=== PATIENT | female | born 1965 | race Caucasian/White ===

== ENCOUNTER → 2018-03-04 09:06 | Outpatient (CLI) | payer BC, SELFPAY ==
[2016-01-31 00:31] VITALS: BMI 20.3
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
== END ==
PROVIDERS: Family Provider Family Medicine; PCP Family Medicine; Referring Provider Family Medicine; Visit Provider Family Medicine
DX: S13.4XXA Sprain of ligaments of cervical spine, initial encounter (principal); X58.XXXA Exposure to other specified factors, initial encounter; Y93.9 Activity, unspecified; Y92.9 Unspecified place or not applicable; Y99.9 Unspecified external cause status
CPT/HCPCS: 72040

== ENCOUNTER → 2019-02-23 10:06 | Outpatient (CLI) | payer OTHER, SELFPAY ==
[2016-01-31 00:31] VITALS: BMI 20.3
--- NOTE | 2019-02-23 10:18 | RAD_ITS ---
STUDY: X-RAY - PELVIS AND BILATERAL HIPS REASON FOR EXAM: Female, 54 years old. No history of known injury. Bilateral hip pain. TECHNIQUE: AP view of the pelvis.? 2 views of the right hip, and 2 views of the left hip were obtained. COMPARISON: None. FINDINGS: There is a non-specific bowel gas pattern. Normal visualized soft tissue structures. Normal bilateral iliac wings, sacroiliac joints and visualized sacrum. Normal bilateral superior and inferior pubic rami. Normal pubic symphysis. Normal bilateral ischial tuberosities. Normal visualized right femoral head. There is mild osteoarthritic spur formation of the right acetabular rim. There is mild articular joint space narrowing of the right hip. Normal visualized left femoral head. There is minimal osteoarthritic spur formation of the left acetabular rim. There is mild articular joint space narrowing of the left hip. RAD/Hips B/L min 2 views w/ Pelvis IMPRESSION: Minor degenerative disease of bilateral hips, no acute fracture or subluxation seen. Electronically Signed: Cammy Dominguez MD at 1:10 EST , Service support ,
[2019-02-23 12:37] LABS: Vitamin D,25 Hydroxy 38.9 ng/mL (29.95-100.01)
[2019-02-23 12:41] LABS: Anion Gap 8 (5-15); BUN 19 mg/dL (7-18); BUN/Creat Ratio 24.9 RATIO (10-20); Calcium,Total 8.8 mg/dL (8.5-10.1); Chloride 106 mmol/L (98-107); Cholesterol 202 mg/dL (200); Creatinine, Serum 0.76 mg/dL (0.55-1.02); EST Glomerular Filtration Rate 84 mL/min (>60); Est Glom Filt Rate - Afr Amer 102 mL/min (>60); Glucose 84 mg/dL (74-106); High Density Lipoprotein 62 mg/dL; Potassium 3.7 mmol/L (3.5-5.1); Sodium Level 142 mmol/L (136-145); Thyroid Stim Hormone (TSH) 1.21 uIU/mL (0.358-3.74); Triglycerides 55 mg/dL; Very Low Density Lipoprotein 11 mg/dL (5-40)
== END ==
PROVIDERS: Family Provider Family Medicine; PCP Family Medicine; Referring Provider Family Medicine; Visit Provider Family Medicine
DX: Z00.00 Encounter for general adult medical examination without abnormal findings (principal); M25.559 Pain in unspecified hip
CPT/HCPCS: 36415; 73521; 80048; 80061; 82306; 84443

== ENCOUNTER 2020-03-23 12:27 | Emergency (ER) | payer OTHER, SELFPAY ==
[2020-03-23 12:29] VITALS: BP 139/79; PULSE 98; RESP 17; TEMP 36.7; O2SAT 100; BMI 23.6
--- NOTE | 2020-03-23 13:10 | ED.VIS.GEN ---
History of Present Illness Chief Complaint: Eye Problem Informant: Patient Narrative: 55-year-old female presents with a 1 hour history of floaters in the right eye. She denies any pain. She does have a history of migraines. She is never experienced these before. She describes them as 1 million black dots with spider webs that are moving around. If she closes her eye and covers that she does not have the symptoms. She takes her hand away with the eye closed she sees him. She does not wear glasses or corrective lenses. Past Medical History - Allergies and Home Meds Allergies/Adverse Reactions: Allergies codeine Allergy (Verified 03/23/20 12:28) Nausea Primary Care Physician: Noman Goldsmith MD [STAFF PHYSICIAN] - As soon as possible Past Medical History: None Surgical History: noncontributory Smoking Status: Never smoker Drugs: None Review of Systems General: Denies: Chills, Fever, Sweats Eyes: Reports: Visual changes - right. Denies: Visual changes - bilaterally, Diplopia ENT: Denies: Rhinorrhea, Sore throat Cardiovascular: Denies: Chest pain, Palpitations Respiratory: Denies: Dyspnea, Cough, Dyspnea on exertion Gastrointestinal: Denies: Abdominal pain, Nausea, Vomiting, Diarrhea, Melena, Hematochezia Genitourinary: Denies: Dysuria, Hematuria, Frequency Musculoskeletal: Denies: Back pain, Extremity Pain Skin: Denies: Rash, Wounds Neurological: Denies: Headache, Weakness, Numbness Physical Exam Vital Signs/Narrative: Vital Signs Temp Pulse Resp BP Pulse Ox 03/23/20 12:29 98.0 F 98 17 139/79 H 100 Inital Vital Signs reviewed: Yes General: Well nourished, Well developed, No Acute Distress Head: Normocephalic, Atraumatic Eyes: Perrl, EOMI ENT: Moist mucous membranes, No rhinorrhea Neck: Supple, Nontender Cardiovascular: Regular rate, Regular rhythm, No murmurs Respiratory: No distress, CTA bilaterally, Chest nontender Abdomen: Soft, Nontender, Nondistended, Normal bowel sounds Back: Nontender, Normal Inspection Extremities: Nontender, No edema Skin: Normal color, No rash Neurological: Alert, Oriented x3, Cranial nerves II-XII grossly intact, Normal Strength, Normal Sensation Psychological: Normal affect, Normal Mood Diagnostic/Tx/Re-eval - Medical Decision Making Right eye vision 20/40 left eye 20/25 both 20/25 Cyclogyl was instilled in the right eye. Funduscopic exam I do not see any evidence of retinal detachment. I am able to visualize some floaters. Her visual carroll are intact. I spoke with ophthalmology (Dr. Goldsmith). He will be able to see her in the office at 0800 hrs. tomorrow. Patient is comfortable with that plan. ED Disposition - Plan for ED Patient: Disposition: Home or Assisted Living Diagnosis: Vitreous floaters of right eye Instructions: What Are Flashes and Floaters?, Treating Flashes and Floaters Referrals: Noman Goldsmith MD [STAFF PHYSICIAN] - As soon as possible
[2020-03-23] MEDS: Cyclopentolate 1% 2 ML Bottle 1 DRP RIGHT EYE (13:15)
== END 2020-03-23 13:59 | disposition home or self-care (01) ==
PROVIDERS: Emergency Provider Emergency Medicine; PCP Family Medicine
DX: H43.391 Other vitreous opacities, right eye (principal)
CPT/HCPCS: 99283

== ENCOUNTER 2020-06-19 12:00 | Outpatient (RCR) | payer BC, SELFPAY ==
[2020-06-19] MEDS: COVID-19 VACC, MRNA(PFIZER)/PF 30 MCG/0.3 ML SYRINGE IM (10:15)
[2020-07-10] MEDS: COVID-19 VACC, MRNA(PFIZER)/PF 30 MCG/0.3 ML SYRINGE IM (10:05)
== END 2020-06-19 23:59 ==
LOC: IMMUN 12:00
PROVIDERS: PCP Family Medicine; Visit Provider Family Medicine
DX: Z23 Encounter for immunization (principal)
CPT/HCPCS: 0001A; 0002A; 91300

== ENCOUNTER → 2022-12-14 | Outpatient (CLI) | payer BC, SELFPAY ==
--- NOTE | 2022-12-14 10:35 | RAD_ITS ---
INDICATION: Right second toe injury EXAMINATION/TECHNIQUE: X-RAY - RIGHT XR Foot Min 3 Views 3 VIEWS COMPARISON: No prior examinations are available for comparison FINDINGS: SOFT TISSUES: No soft tissue swelling or gas. No radiopaque foreign body. BONES/JOINTS: Nondisplaced intra-articular fracture of the base of the proximal phalanx of the second toe. Normal alignment. Moderate to severe degenerative arthrosis of the first metatarsophalangeal joint.. No sclerotic or destructive changes observed. RAD/Foot min 3 Views IMPRESSION: Fracture of the proximal phalanx of the second toe. Electronically Signed: Rg Beckham MD at 13:37 EDT ,
== END | disposition home or self-care (01) ==
LOC: MTRAD 10:33
PROVIDERS: PCP Family Medicine; Referring Provider Family Medicine; Visit Provider Family Medicine
DX: S99.921A Unspecified injury of right foot, initial encounter (principal); X58.XXXA Exposure to other specified factors, initial encounter
CPT/HCPCS: 73630

== ENCOUNTER 2023-02-02 20:29 | Observation (INO) | payer BC, SELFPAY ==
[2023-02-02 20:30] VITALS: BP 145/79; PULSE 75; RESP 15; TEMP 36.6; O2SAT 97; BMI 23.2
[2023-02-02 21:51] VITALS: BP 131/85; PULSE 71; RESP 16; O2SAT 99
[2023-02-02 21:57] VITALS: BMI 23.9
--- NOTE | 2023-02-02 22:04 | CT_ITS ---
EXAM: CT HEAD WITHOUT INTRAVENOUS CONTRAST CLINICAL INDICATION: TIA TECHNIQUE: Multiple axial images were obtained of the head without intravenous contrast. This CT exam was performed using one or more of the following dose reduction techniques: automated exposure control, adjustment of the mA and/or kV according to patient size, and/or use of iterative reconstruction technique. COMPARISON: No relevant prior studies available. FINDINGS: BRAIN AND EXTRA-AXIAL SPACES: No significant abnormality. No intra- or extra-axial hemorrhage. No evidence of acute infarct. No intracranial mass or mass effect. There is preservation of the ortiz/white matter interface. Ventricles are appropriate for age. Basal cisterns are patent. BONES/JOINTS: No significant abnormality. No discrete lytic or blastic abnormalities. SINUSES: No significant findings. MASTOID AIR CELLS: No significant effusion. ORBITS: No acute findings. CT/Brain/Head without Contrast IMPRESSION: No CT evidence of acute intracranial pathology. ASPECTS: 10. Electronically Signed: Alejandro Glass DO at 23:10 EDT ,
--- NOTE | 2023-02-02 22:04 | CT_ITS ---
EXAM: CT ANGIOGRAPHY HEAD AND NECK WITH INTRAVENOUS CONTRAST CLINICAL INDICATION: TIA TECHNIQUE: [place] [facility] [place]/head and neck CT angiography protocol performed with intravenous contrast. This CT exam was performed using one or more of the following dose reduction techniques: automated exposure control, adjustment of the mA and/or kV according to patient size, and/or use of iterative reconstruction technique. MIP reconstructed images were created and reviewed. CONTRAST: IV 100mL [id number] COMPARISON: CT neck, 06/27/2014. CT head, 02/02/2023. FINDINGS: HEAD: RIGHT ANTERIOR CEREBRAL ARTERY: No significant abnormality. No significant stenosis at the visualized segments. Anterior communicating artery is present. No aneurysm. RIGHT MIDDLE CEREBRAL ARTERY: No significant abnormality. No significant stenosis at the visualized segments. No aneurysm. RIGHT POSTERIOR CEREBRAL ARTERY: There is a right posterior communicating artery. No occlusion or significant stenosis. No aneurysm. RIGHT INTRACRANIAL INTERNAL CAROTID ARTERY: No significant abnormality. No significant stenosis. No dissection or occlusion. RIGHT INTRACRANIAL VERTEBRAL ARTERY: No significant abnormality. No significant stenosis. No dissection or occlusion. LEFT ANTERIOR CEREBRAL ARTERY: No significant abnormality. No significant stenosis at the visualized segments. No aneurysm. LEFT MIDDLE CEREBRAL ARTERY: No significant abnormality. No significant stenosis at the visualized segments. No aneurysm. LEFT POSTERIOR CEREBRAL ARTERY: There is a left posterior communicating artery. No occlusion or significant stenosis. No aneurysm. LEFT INTRACRANIAL INTERNAL CAROTID ARTERY: No significant abnormality. No significant stenosis. No dissection or occlusion. LEFT INTRACRANIAL VERTEBRAL ARTERY: No significant abnormality. No significant stenosis. No dissection or occlusion. BASILAR ARTERY: No significant abnormality. No significant stenosis. No aneurysm. OTHER VASCULATURE: No vascular malformation. NECK: RIGHT COMMON CAROTID ARTERY: No significant abnormality. No significant stenosis. No dissection or occlusion. RIGHT EXTRACRANIAL INTERNAL CAROTID ARTERY: No significant abnormality. No significant stenosis. No dissection or occlusion. RIGHT EXTERNAL CAROTID ARTERY: No significant abnormality. No occlusion. RIGHT EXTRACRANIAL VERTEBRAL ARTERY: No significant abnormality. No significant stenosis. No dissection or occlusion. LEFT COMMON CAROTID ARTERY: No significant abnormality. No significant stenosis. No dissection or occlusion. LEFT EXTRACRANIAL INTERNAL CAROTID ARTERY: No significant abnormality. No significant stenosis. No dissection or occlusion. LEFT EXTERNAL CAROTID ARTERY: No significant abnormality. No occlusion. LEFT EXTRACRANIAL VERTEBRAL ARTERY: No significant abnormality. No significant stenosis. No dissection or occlusion. THYROID: Subcentimeter left thyroid nodule for which no follow-up is indicated. BRACHIOCEPHALIC AND SUBCLAVIAN ARTERIES: Normal as visualized. No occlusion or significant stenosis. LUNG APICES: Normal as visualized. HEAD and NECK: BONES/JOINTS: Degenerative changes in the cervical spine. No discrete lytic or blastic abnormalities. No acute osseous abnormalities. SOFT TISSUES: No significant abnormality. CAROTID STENOSIS REFERENCE USING NASCET CRITERIA: % ICA stenosis = (1 - narrowest ICA diameter/diameter of distal cervical ICA) x 100. Mild - <50% stenosis. Moderate - 50-69% stenosis. Severe - 70-94% stenosis. Near occlusion - 95-99% stenosis. Occluded - 100% stenosis. CT/CTA Head AND Neck W/ Contrast IMPRESSION: 1. No acute arterial pathology in the neck. 2. No large vessel occlusion or critical intracranial arterial stenosis. Electronically Signed: Alejandro Glass DO at 23:27 EDT ,
--- NOTE | 2023-02-02 22:05 | EX.ED.DYSGE1 ---
HPI History of Present Illness Chief Complaint: Neuro S/Sx Informant: patient Onset/Context/Timing Onset: Today Narrative Narrative: Patient states that at 7:30 PM this evening she was eating dinner when she got lightheaded. She had paresthesias in her left upper extremity. When she got up to walk she felt like her left side was weak and she had a stumbling gait. She drove home and laid on the couch. Symptoms seem to improve after 15 minutes or so. She states on arrival to the emergency room she had some slight weakness remaining in her left side but at the time of my evaluation she states it is resolved and she feels back to her normal baseline. After looking at some information online she is concerned that she may have had a mini stroke. PFSH PFSH Medical History Migraines Smoker Home Medications propranolol 60 mg capsule,24 hr,extended release 60 mg PO QHS 02/02/23 [History Last Taken Unknown] sumatriptan succinate 50 mg tablet 50 mg PO PRN 02/02/23 [History Last Taken Unknown] Allergy/AdvReac Type Severity Reaction Status Date / Time codeine Allergy Nausea Verified 02/02/23 20:34 Social History Smoking Status: Never smoker ROS ROS ED Constitutional Constitutional ED: Denies chills or fever(s) Eyes Eyes: Denies change in vision or discharge from eye(s) ENT ENT ED: Denies discharge from eye(s), rhinorrhea or sore throat Cardiovascular Cardiovascular: Denies chest pain or palpitations Respiratory/Chest Respiratory/Chest: Denies cough or dyspnea Gastrointestinal Gastrointestinal: Denies abdominal pain, nausea or vomiting Genitourinary Genitourinary ED: Denies dysuria Musculoskeletal Musculoskeletal: Denies back pain or extremity pain Integumentary Denies Abrasions or rash Neurologic Neurologic: Reports paresthesias and weakness; Denies headache(s) Psychiatric Psychiatric: Denies anxiety or depression Allergic/Immunologic Allergic/Immunologic ED: Denies lip swelling or urticaria EXAM Physical Exam Const Vital Signs: 02/02/23 20:30 02/02/23 21:51 Temperature 97.8 F Temperature Source Temporal Pulse Rate 75 71 Respiratory Rate 15 16 Blood Pressure 145/79 H 131/85 H Blood Pressure Mean 101 100 Pulse Ox 97 99 Oxygen Delivery Method Room Air Room Air Positive well nourished and well developed General Appearance ED: well developed HEENT Reports normocephalic and head/scalp atraumatic Eyes PERRL and EOMs intact bilaterally Neck supple Chest Wall inspection of chest normal and palpation of chest normal Resp normal respiratory effort and clear to auscultation bilaterally Cardio regular rate and regular rhythm GI normal to inspection, nondistended, normoactive bowel sounds Palpation: soft Back/Spine no CVA tenderness Extremity normal to inspection Neuro oriented x3 and no sensory deficits noted Neuro Narrative: NIH equals 0 at time of my evaluation at 10 PM. Sensorium / Orientation: alert Motor Exam: strength 5/5 throughout Psych mental status grossly normal Skin no rashes or lesions noted MDM MDM MDM Narrative Medical decision making narrative: IV line established. Labwork obtained to evaluate for leukocytosis, anemia, and electrolyte derangement. EKG obtained to evaluate for cardiac arrhythmia/ischemia. Chest x-ray obtained to evaluate for acute lung pathology, cardiac size, or mediastinal abnormality. CT scan of the head obtained as well as CTA of the head and neck to evaluate for any evidence of stroke. Lab Data Attestation: I reviewed the patient's lab results. Labs: Laboratory Results - last 24 hr 02/02/23 02/02/23 22:01 22:27 WBC 8.0 RBC 4.53 Hgb 14.3 Hct 43.1 MCV 95.1 MCH 31.6 MCHC 33.2 RDW Std Deviation 42.5 RDW Coeff of Nila 12.1 Plt Count 298 MPV 9.3 Immature Gran % (Auto) 0.200 Neut % (Auto) 67.8 Lymph % (Auto) 22.8 [place] % (Auto) 7.6 Eos % (Auto) 1.2 Baso % (Auto) 0.4 Absolute Neuts (auto) 5.5 Absolute Lymphs (auto) 1.83 Nucleated RBC % 0 Sodium 143 Potassium 4.2 Chloride 110 H Carbon Dioxide 28.0 Anion Gap 5 BUN 18 Creatinine 0.82 Estim Creat Clear Calc 60.59 Est GFR (MDRD) Af Amer 93 Est GFR (MDRD) Non-Af 77 BUN/Creatinine Ratio 22.1 H Glucose 125 H Calcium 8.8 Troponin I High Sens < 3 L POC Glucose 126 H Radiography Chest X-Ray - ED: 1 View, Read by ED Physician, Normal, Heart, Lungs and Mediastinum Diagnostic Testing: Clinical Impression(s) from Imaging Studies Brain CT 02/02/23 22:04 IMPRESSION: No CT evidence of acute intracranial pathology. ASPECTS: 10. Electronically Signed: Alejandro Glass DO at 23:10 EDT , Head/Neck CTA 02/02/23 22:04 IMPRESSION: 1. No acute arterial pathology in the neck. 2. No large vessel occlusion or critical intracranial arterial stenosis. Electronically Signed: Alejandro Glass DO at 23:27 EDT , Chest X-Ray 02/02/23 22:32 IMPRESSION: Minimal linear scarring or discoid atelectasis at left base.. No acute infiltration or other significant abnormality Electronically Signed: Efrain Partida MD at 22:50 EDT , EKG Initial EKG: Attestation: I personally reviewed and interpreted this EKG as follows: Interpretation: Sinus Rhythm (Sinus at 67 with no acute ischemia.) Treatment and Re-Evaluation :: CBC was normal white count normal hemoglobin. Chemistry studies unremarkable. Glucose is 125. Troponin is less than 3. Portable chest x-ray per my interpretation reveals no focal infiltrate. Radiology interpretation reviewed and agrees. EKG is sinus rhythm with no ischemia. CT scan of the head as well as CTA of the head and neck revealed no acute abnormalities. Given the patient's symptoms consistent with a TIA I do feel she warrants observation for remainder of stroke/TIA work-up. I will speak with the hospitalist. Discharge Plan Triage Chief Complaint: Neuro S/Sx ED Provider: Hermila Redmond Dx/Rx/DC Orders Clinical Impression: Brain TIA Prescriptions: No Action sumatriptan succinate 50 mg tablet 50 mg PO PRN propranolol 60 mg capsule,extended release 24 hr 60 mg PO QHS Primary Care Provider: Will Valdez Referrals: Will Valdez MD [Primary Care Provider] - Disposition Disposition: Acute Care Hospital [facility]
[2023-02-02 22:20] LABS: Bedside Glucose 126 mg/dL (74-106)
--- NOTE | 2023-02-02 22:32 | RAD_ITS ---
STUDY: X-RAY CHEST REASON FOR EXAM: Female, 57 years old. TIA TECHNIQUE: AP portable COMPARISON: None. FINDINGS: There is minimal linear scarring or discoid atelectasis at left base.. There is no demonstrated pleural abnormality. Normal size heart. Normal mediastinum and moira. Normal visualized pulmonary arteries. Normal visualized aortic arch and descending thoracic aorta. Normal visualized thoracic spine. Normal visualized ribs, clavicles, and shoulders. There is no demonstrated abnormality of the visualized soft tissue structures of the upper abdomen. RAD/Chest 1 View (Portable) IMPRESSION: Minimal linear scarring or discoid atelectasis at left base.. No acute infiltration or other significant abnormality Electronically Signed: Efrain Partida MD at 22:50 EDT ,
[2023-02-02 22:41] LABS: Absolute Lymphocyte Count 1.83 X10^3/uL (0.83-4.51); Absolute Neutrophil Count 5.5 X10^3/uL (2.0-7.7); Basophil# 0.03 X10^3/uL; Basophil% 0.4 % (0-1); Eosinophils% 1.2 % (0-5); Hematocrit 43.1 % (37-47); Hemoglobin 14.3 g/dL (12.0-15.0); Lymphocyte # 1.83 X10^3/ul (0.83-4.51); Lymphocyte % 22.8 % (19-41); Mean Corp Hgb Conc 33.2 g/dL (32-36); Mean Corpuscular Hgb 31.6 pg (27.0-32.0); Mean Corpuscular Volume 95.1 fL (81-99); Mean Platelet Vol. 9.3 fl (6.2-12.0); Monocyte# 0.61 X10^3/uL; Monocyte% 7.6 % (0-10); NRBC Flagged by Analyzer 0 % (0-5); Neutrophil # 5.45 X10^3/uL (2.7-7.7); Neutrophil % 67.8 % (47-70); Platelet Count 298 K/mm3 (150-450); RBC Distribution Width CV 12.1 % (11.6-14.6); RBC Distribution Width SD 42.5 fl (35.1-43.9); Red Blood Count 4.53 M/mm3 (4.2-5.4)
[2023-02-02 23:12] LABS: Anion Gap 5 (5-15); BUN 18 mg/dL (7-18); BUN/Creat Ratio 22.1 RATIO (10-20); Calcium,Total 8.8 mg/dL (8.5-10.1); Chloride 110 mmol/L (98-107); Creatinine, Serum 0.82 mg/dL (0.55-1.02); EST Glomerular Filtration Rate 77 mL/min (>60); Est Glom Filt Rate - Afr Amer 93 mL/min (>60); Estimated Creatinine Clearance 60.59 ml/min; Glucose 125 mg/dL (74-106); Potassium 4.2 mmol/L (3.5-5.1); Sodium Level 143 mmol/L (136-145); Troponin-I HS < 3 pg/mL (3.0-54.0)
--- NOTE | 2023-02-03 02:03 | HP.PCM.HOS_ITS ---
HPI - General General Date of Admission: 02/03/23 Date of Service: 02/03/23 Chief Complaint: Strokelike symptoms HPI Narrative GUNNER KHOURY, is a 57 F with a significant history of tobacco abuse and chronic migraines who presents emergency department with strokelike symptoms. Her symptoms started few hours before presentation. Of note patient was eating at a restaurant and she felt lightheaded. Then her left arm was numbed. Also t he fingers of her left hand was tingling. When she got up to walk she realized that she was wobbly because her left leg was weak. She went home and googled and found out that her symptoms may be due to stroke. She denies any facial asymmetry. Subsequently her brought her to the emergency department. The bulk of her symptoms lasted for about 15 minutes. However she still had some residual weakness of her left leg while at the ED but that also eventually went away. She was not a candidate of tPA since her symptoms resolved. PFSH Medical History Migraines Smoker Home Medications propranolol 60 mg capsule,24 hr,extended release 60 mg PO QHS 02/02/23 [History Last Taken Unknown] sumatriptan succinate 50 mg tablet 50 mg PO PRN 02/02/23 [History Last Taken Unknown] Allergy/AdvReac Type Severity Reaction Status Date / Time codeine Allergy Nausea Verified 02/02/23 20:34 Family History Other Rheumatoid arthritis Surgical History History of tonsillectomy Social History Smoking Status: Current some day smoker tobacco type: cigarettes ROS ROS Narrative Pertinent positives and pertinent negatives as noted in HPI. All other systems were reviewed and are negative Vital Signs Vital Signs Vital Signs: 02/02/23 20:30 02/02/23 21:51 Temperature 97.8 F Temperature Source Temporal Pulse Rate 75 71 Respiratory Rate 15 16 Blood Pressure 145/79 H 131/85 H Blood Pressure Mean 101 100 Pulse Ox 97 99 Oxygen Delivery Method Room Air Room Air Weight Weight: 59.3 kg Body Mass Index (BMI) 23.9 Physical Exam Narrative Physical exam: General: Well-nourished, well-developed. Head: Normocephalic, atraumatic, no tenderness Eyes: Vision is grossly intact. EOMI ENT, no trauma, moist mucous membranes, no rhinorrhea Neck: Nontender, No thyromegaly. CVS: Regular rate and rhythm. S1-S2 present. No murmur, gallop or rub. Respiratory : clear to auscultation bilaterally, chest wall nontender Abdomen: Soft, nontender, nondistended, normal bowel sounds, no masses : Deferred Back: Nontender, no CVA tenderness, no midline spinal tenderness, deformities, step-offs Extremities: Nontender full range of motion, no trauma Skin: Normal color, no trauma, abrasions Neuro: Alert, oriented, cranial nerves II through XII grossly intact. No dysmetria with [id number] test or [id number] test. No sensation changes on bilateral extremities, upper and lower. Strength 5 out of 5 throughout. No hyperreflexia of elbow reflex or knee jerk reflex. Psychiatry: Normal mood. Normal affect. Not depressed. Not anxious. Results Lab / Micro Data 02/03/23 05:22 02/03/23 05:22 Labs: Laboratory Results - last 24 hr 02/02/23 22:01: POC Glucose 126 H 02/02/23 22:27: WBC 8.0, RBC 4.53, Hgb 14.3, Hct 43.1, MCV 95.1, MCH 31.6, MCHC 33.2, RDW Std Deviation 42.5, RDW Coeff of Nila 12.1, Plt Count 298, MPV 9.3, Immature Gran % (Auto) 0.200, Neut % (Auto) 67.8, Lymph % (Auto) 22.8, [place] % (Auto) 7.6, Eos % (Auto) 1.2, Baso % (Auto) 0.4, Absolute Neuts (auto) 5.5, Absolute Lymphs (auto) 1.83, Nucleated RBC % 0, Sodium 143, Potassium 4.2, Chloride 110 H, Carbon Dioxide 28.0, Anion Gap 5, BUN 18, Creatinine 0.82, Estim Creat Clear Calc 60.59, Est GFR (MDRD) Af Amer 93, Est GFR (MDRD) Non-Af 77, BUN/Creatinine Ratio 22.1 H, Glucose 125 H, Calcium 8.8, Troponin I High Sens < 3 L Radiology Impression Brain CT 02/02/23 22:04 IMPRESSION: No CT evidence of acute intracranial pathology. ASPECTS: 10. Electronically Signed: Alejandro Glass DO at 23:10 EDT , Head/Neck CTA 02/02/23 22:04 IMPRESSION: 1. No acute arterial pathology in the neck. 2. No large vessel occlusion or critical intracranial arterial stenosis. Electronically Signed: Alejandro Glass DO at 23:27 EDT , Chest X-Ray 02/02/23 22:32 IMPRESSION: Minimal linear scarring or discoid atelectasis at left base.. No acute infiltration or other significant abnormality Electronically Signed: Efrain Partida MD at 22:50 EDT , Assessment & Plan Assessment/Plan (1) Brain TIA: PLAN: Plan Brain TIA Serial NINDS NIH Scale ordered Impression of head/neck CTA by radiology: No acute pathology in the neck. No large vessel occlusion or critical intracranial arterial stenosis. Impression of brain CT by radiology: No CT evidence of acute intracranial pathology. CT neck was independently interpreted. I agree with radiology interpretation Lipid profile and A1c ordered. Physical therapy, occupational therapy and speech therapy to work with patient. N.p.o. until bedside swallow eval. Daily aspirin. High intensity statin Permissive hypertension. Control blood pressure with labetalol for systolic bl ood pressure of more than 220 or diastolic blood pressure of more than 120. MRI of head; brain; and neck. Echocardiogram ordered. History of migraines Current presentation is different from how patient's migraine presented. Hold migraine medications. DVT prophylaxis SCD ordered Time spent in the patient's overall evaluation,decision-making process, review of diagnostic data, adjustment of management, discussion with other providers, nursing and ancillary staff involved in patient's care documentation, 50 minutes. Charges/Coding Visit Charges Inpatient E&M: 56674 Init Hosp L2
--- NOTE | 2023-02-03 03:59 | ECHOD_ITS ---
Reason For Study: TIA/CVA Procedure This was a 2D Doppler, Color Flow transthoracic echocardiogram. Exam performed portable in patient room. Left Ventricle Normal size and thickness. The left ventricular ejection fraction is 65 %. No evidence for diastolic dysfunction. Right Ventricle Normal right ventricle. Atria The left and right atria are normal. Bubble contrast study is negative for PFO/ASD. Mitral Valve Trivial mitral valve insufficiency. Tricuspid Valve Trivial tricuspid valve insufficiency. Normal pulmonary artery pressure. Aortic Valve Trisinus/trileaflet aortic valve. Pulmonic Valve Mild (1+) pulmonic valve insufficiency. Great Vessels Normal sized aortic root. Pericardium/Pleural No pericardial effusion. Medication Performed a rapid injection of agitated mix of 9 cc saline and 1cc air to assess for atrial septal defect. MMode/2D Measurements & Calculations LVIDd: 4.3 cm IVSd: 0.94 cm Ao root diam: 3.4 cm LVIDs: 2.7 cm LVPWd: 0.67 cm LA dimension: 3.2 cm RVDd: 3.2 cm FS: 36.6 % LAV(MOD-bp): 29.2 ml LVAd ap4: 24.4 cm2 SV(MOD-sp4): 41.7 ml LAV(MOD-bp) Indexed: 18.3 ml/m2 LVLd ap4: 7.2 cm LAV(MOD-sp2): 29.9 ml EDV(MOD-sp4): 69.2 ml LAV(MOD-sp4): 27.3 ml EDV(sp4-el): 70.5 ml LVAs ap4: 13.0 cm2 LVLs ap4: 5.3 cm ESV(MOD-sp4): 27.6 ml ESV(sp4-el): 27.1 ml EF(MOD-sp4): 60.2 % EF(sp4-el): 61.6 % SV(sp4-el): 43.5 ml LA A4 area: 11.7 cm2 RA A4 area: 11.8 cm2 TAPSE: 2.6 cm Time Measurements MV dec time: 0.17 sec Doppler Measurements & Calculations MV E max mark: 79.4 cm/sec Lat Peak E' Mark: 10.1 cm/sec Med Peak E' Mark: 9.8 cm/sec MV A max mark: 83.3 cm/sec E/E' lat: 7.9 E/E' med: 8.1 MV E/A: 0.95 MV V2 max: 85.7 cm/sec MV P1/2t max mark: 86.7 cm/sec Ao V2 max: 112.1 cm/sec MV max P.9 mmHg MV P1/2t: 65.0 msec Ao max P.0 mmHg MV V2 mean: 43.7 cm/sec Ao V2 mean: 75.1 cm/sec MV mean P.95 mmHg MV dec slope: 391.0 cm/sec2 Ao mean P.6 mmHg MV V2 VTI: 31.0 cm MVA(P1/2t): 3.4 cm2 Ao V2 VTI: 27.1 cm AV (velocity ratio): 1.00 LV V1 max: 118.7 cm/sec PA V2 max: 64.2 cm/sec TR max mark: 209.9 cm/sec LV V1 max P.6 mmHg TR max P.6 mmHg LV V1 mean P.7 mmHg LV V1 mean: 76.4 cm/sec LV V1 VTI: 27.0 cm ECHO/Echo Complete Interpretation Summary The left ventricular ejection fraction is 65 %. Bubble contrast study is negative for PFO/ASD. Mild (1+) pulmonic valve insufficiency. Ordering Physician: Desmond Avelar Performed By: Cleve Rodriguez RCS
--- NOTE | 2023-02-03 03:59 | MRI_ITS ---
STUDY: MRI BRAIN WITHOUT CONTRAST REASON FOR EXAM: Female, 57 years old. stroke lightheadedness, L arm paralysis, L leg weakness all [id number]., TIA vs atypical migraine, h/o migraines TECHNIQUE: Standardized multiplanar fat and water weighted pulse sequences were obtained. COMPARISON: Head CT dated February 02, 2023 FINDINGS: Normal size of the ventricles and extra-axial spaces for the patient''s age. Normal white matter tracts of the supratentorial brain. There is no evidence for recent intracranial ischemia or other cause of cytotoxic edema on diffusion weighted imaging (DWI). Normal T2* images of the brain without demonstrated susceptibility artifact. There is no demonstrated hemosiderin stain. There are no demyelinating plagues of the supratentorial brain, brainstem or cerebellum. There are no findings suspicious for multiple sclerosis (MS). Normal bilateral basal ganglia. Normal thalami. There is no extra-axial fluid accumulation. Normal flow voids within the major intracranial circulation suggesting patency by spin echo criteria. Normal sella turcica, pituitary gland, infundibular stalk, optic chiasm and hypothalamus. Normal tectal plate and pineal gland. Normal midbrain, lisa and medulla. Normal cerebellum. Normal basal cisterns. Normal bilateral temporal bones. Normal bilateral internal auditory canals. No demonstrated orbital abnormality, within the constraints of a routine brain study. Normal visualized paranasal sinuses. Normal calvarium and skull base. Normal visualized soft tissue structures. Normal visualized upper cervical spine. MRI/Brain without Contrast IMPRESSION: Negative unenhanced MRI of the brain. Electronically Signed: Julio Cesar Bates MD at 14:46 EDT ,
[2023-02-03 04:07] VITALS: PULSE 76; RESP 16; O2SAT 98
[2023-02-03 04:17] VITALS: BP 128/76; PULSE 61; RESP 18; TEMP 36.5; O2SAT 99; BMI 23.6
[2023-02-03 06:43] LABS: Absolute Lymphocyte Count 2.65 X10^3/uL (0.83-4.51); Absolute Neutrophil Count 3.2 X10^3/uL (2.0-7.7); Basophil# 0.02 X10^3/uL; Basophil% 0.3 % (0-1); Eosinophil# 0.12 X10^3/uL; Eosinophils% 1.8 % (0-5); Hematocrit 40.9 % (37-47); Hemoglobin 13.8 g/dL (12.0-15.0); Lymphocyte # 2.65 X10^3/ul (0.83-4.51); Lymphocyte % 39.5 % (19-41); Mean Corp Hgb Conc 33.7 g/dL (32-36); Mean Corpuscular Hgb 32.2 pg (27.0-32.0); Mean Corpuscular Volume 95.3 fL (81-99); Mean Platelet Vol. 9.8 fl (6.2-12.0); Monocyte# 0.62 X10^3/uL; Monocyte% 9.2 % (0-10); NRBC Flagged by Analyzer 0 % (0-5); Neutrophil # 3.21 X10^3/uL (2.7-7.7); Neutrophil % 47.9 % (47-70); Platelet Count 272 K/mm3 (150-450); RBC Distribution Width SD 41.9 fl (35.1-43.9); Red Blood Count 4.29 M/mm3 (4.2-5.4); White Blood Count 6.7 K/mm3 (4.4-11.0)
[2023-02-03 07:12] LABS: Anion Gap 6 (5-15); BUN 15 mg/dL (7-18); BUN/Creat Ratio 20.2 RATIO (10-20); Calcium,Total 8.6 mg/dL (8.5-10.1); Chloride 109 mmol/L (98-107); Cholesterol 180 mg/dL (200); Creatinine, Serum 0.74 mg/dL (0.55-1.02); EST Glomerular Filtration Rate 86 mL/min (>60); Est Glom Filt Rate - Afr Amer 103 mL/min (>60); Estimated Creatinine Clearance 67.14 ml/min; Glucose 110 mg/dL (74-106); High Density Lipoprotein 58 mg/dL; Potassium 3.8 mmol/L (3.5-5.1); Sodium Level 140 mmol/L (136-145); Triglycerides 98 mg/dL; Very Low Density Lipoprotein 20 mg/dL (5-40)
[2023-02-03] MEDS: Aspirin 81 MG TAB.CHEW PO (07:55)
[2023-02-03 08:11] VITALS: BP 135/84; PULSE 56; RESP 16; TEMP 36.8; O2SAT 100; BMI 23.6
--- NOTE | 2023-02-03 08:39 | PN.HOSP_ITS ---
Reason for Visit Reason for Visit: Diagnoses Transient cerebral ischemic attack, unspecified (02/03/23) Subjective Subjective Patient had transient episode of lightheadedness but also paresthesias in left lower extremity. Patient is also weak in the left lower extremity. Symptoms have since resolved. Patient does have a history of migraines which she does take sumatriptan for. Patient's migraines are typically headaches and occasionally is associated with scotoma. Patient denied any headache nor any scotoma. Objective Data Objective Data Vital Signs: Vital Signs Temp Pulse Resp BP Pulse Ox O2 Del Method 36.8 C 56 L 16 135/84 H 100 Room Air 02/03/23 08:11 02/03/23 08:11 02/03/23 08:11 02/03/23 08:11 02/03/23 08:11 02/03/23 08:13 Oxygen Delivery Method Room Air Weight: 58.5 kg Body Mass Index (BMI) 23.6 Lab / Micro Data 02/03/23 05:22 02/03/23 05:22 Labs: Laboratory Results - last 24 hr 02/02/23 22:01: POC Glucose 126 H 02/02/23 22:27: WBC 8.0, RBC 4.53, Hgb 14.3, Hct 43.1, MCV 95.1, MCH 31.6, MCHC 33.2, RDW Std Deviation 42.5, RDW Coeff of Nila 12.1, Plt Count 298, MPV 9.3, Immature Gran % (Auto) 0.200, Neut % (Auto) 67.8, Lymph % (Auto) 22.8, [place] % (Auto) 7.6, Eos % (Auto) 1.2, Baso % (Auto) 0.4, Absolute Neuts (auto) 5.5, Absolute Lymphs (auto) 1.83, Nucleated RBC % 0, Sodium 143, Potassium 4.2, Chloride 110 H, Carbon Dioxide 28.0, Anion Gap 5, BUN 18, Creatinine 0.82, Estim Creat Clear Calc 60.59, Est GFR (MDRD) Af Amer 93, Est GFR (MDRD) Non-Af 77, BUN/Creatinine Ratio 22.1 H, Glucose 125 H, Calcium 8.8, Troponin I High Sens < 3 L 02/03/23 05:22: WBC 6.7, RBC 4.29, Hgb 13.8, Hct 40.9, MCV 95.3, MCH 32.2 H, MCHC 33.7, RDW Std Deviation 41.9, RDW Coeff of Nila 12.0, Plt Count 272, MPV 9.8, Immature Gran % (Auto) 1.300 H, Neut % (Auto) 47.9, Lymph % (Auto) 39.5, [place] % (Auto) 9.2, Eos % (Auto) 1.8, Baso % (Auto) 0.3, Absolute Neuts (auto) 3.2, Absolute Lymphs (auto) 2.65, Nucleated RBC % 0, Sodium 140, Potassium 3.8, Chloride 109 H, Carbon Dioxide 25.0, Anion Gap 6, BUN 15, Creatinine 0.74, Estim Creat Clear Calc 67.14, Est GFR (MDRD) Af Amer 103, Est GFR (MDRD) Non-Af 86, BUN/Creatinine Ratio 20.2 H, Glucose 110 H, Calcium 8.6, Triglycerides 98, Cholesterol 180, LDL Cholesterol 102, VLDL Cholesterol 20, HDL Cholesterol 58 Radiography Diagnostic Testing: Radiology Impression Brain CT 02/02/23 22:04 IMPRESSION: No CT evidence of acute intracranial pathology. ASPECTS: 10. Electronically Signed: Alejandro DelaneyVincenzo Glass DO at 23:10 EDT , Head/Neck CTA 02/02/23 22:04 IMPRESSION: 1. No acute arterial pathology in the neck. 2. No large vessel occlusion or critical intracranial arterial stenosis. Electronically Signed: Alejandro DelaneyVincenzo Glass DO at 23:27 EDT , Chest X-Ray 02/02/23 22:32 IMPRESSION: Minimal linear scarring or discoid atelectasis at left base.. No acute infiltration or other significant abnormality Electronically Signed: Efrain Partida MD at 22:50 EDT , Physical Exam Const alert and no apparent distress HEENT head/scalp atraumatic and moist oral mucous membranes Eyes PERRL and EOMs intact bilaterally Extremity normal to inspection Neuro oriented x3, CN's II-XII intact bilaterally, moves all extremities, no focal m otor deficits and no sensory deficits noted Sensorium / Orientation: awake and alert Speech: speech normal Psych affect normal Assessment & Plan Assessment/Plan (1) Brain TIA: PLAN: TIA less likely atypical migraine as she is not have any headache nor any scotoma. Lightheaded and left arm paresthesias. Sx last ~[address], CTA head and neck negative. on ASA and HIS. Follow up MRI brain and echocardiogram. Consult [facility]. PLAN: Plan History of migraines: no triptans for now as CVA work up underway. DVT prophylaxis SCD ordered Charges/Coding Visit Charges Inpatient E&M: 76259 Subs Hosp L2
[2023-02-03] MEDS: Influenza Virus Vac Quad 23-24 60 MCG/0.5 ML SYRINGE IM (09:55)
[2023-02-03 10:35] LABS: Hemoglobin A1c 5.1 % (3.8-5.6)
[2023-02-03 12:10] VITALS: BP 121/77; PULSE 53; RESP 18; TEMP 36.7; O2SAT 99
[2023-02-03 14:48] VITALS: BMI 23.6
[2023-02-03 15:12] VITALS: O2SAT 99
--- NOTE | 2023-02-03 15:18 | CASEMGMT ---
Social Work Pt states she does have advanced directives- is HCPOA. However, pt is being discharged and is already on his way and cannot provide documents. Delphine Cortés, OFFICE SERVICES REPRESENTATIVE DEMAND GENERATION MANAGER
--- NOTE | 2023-02-03 15:26 | PCM.DC.SUM ---
Providers Date of Admission: 02/03/23 Primary Care Physician: Dr. Will Valdez MD Reason For Visit: TIA Diagnosis Discharge Diagnosis (1) Brain TIA: Status: Acute Code(s): G45.9 - Transient cerebral ischemic attack, unspecified Plan: TIA less likely atypical migraine as she is not have any headache nor any scotoma. Lightheaded and left arm paresthesias. Sx last ~[address], CTA head and neck negative. on ASA and HIS. Follow up MRI brain and echocardiogram. Consult [facility]. Plan History of migraines: no triptans for now as CVA work up underway. DVT prophylaxis SCD ordered Medications at Discharge Home Medications propranolol 60 mg capsule,24 hr,extended release 60 mg PO QHS 02/02/23 sumatriptan succinate 50 mg tablet 50 mg PO PRN 02/02/23 aspirin 81 mg chewable tablet 81 mg PO BREAKFAST #0 tabs 02/03/23 atorvastatin 40 mg tablet 40 mg PO QHS #30 tabs 02/03/23 Hospital Course Procedures 2-D Echocardiogram Summary of Care Provided Minutes Spent on Discharge: 32 Hospital Course: Pt presents with lightheadedness on left sided paresthesias. Symptoms resolved. Work up was unremarkable for CVA. Though concerning for TIA. She was seen by [facility] teleneurology. I discussed the case and she recommended ASA and statin and 30-event monitor. Patient has history of migraine, but she did not have head pain nor scotoma with this, so this was not a migraine variant. Weight / BMI Weight Weight: 58.5 kg Body Mass Index (BMI) 23.6 ABG / Lab / Microbiology Data 02/03/23 05:22 02/03/23 05:22 Laboratory: Laboratory Results - last 24 hr 02/02/23 22:01: POC Glucose 126 H 02/02/23 22:27: WBC 8.0, RBC 4.53, Hgb 14.3, Hct 43.1, MCV 95.1, MCH 31.6, MCHC 33.2, RDW Std Deviation 42.5, RDW Coeff of Nila 12.1, Plt Count 298, MPV 9.3, Immature Gran % (Auto) 0.200, Neut % (Auto) 67.8, Lymph % (Auto) 22.8, Long % (Auto) 7.6, Eos % (Auto) 1.2, Baso % (Auto) 0.4, Absolute Neuts (auto) 5.5, Absolute Lymphs (auto) 1.83, Nucleated RBC % 0, Sodium 143, Potassium 4.2, Chloride 110 H, Carbon Dioxide 28.0, Anion Gap 5, BUN 18, Creatinine 0.82, Estim Creat Clear Calc 60.59, Est GFR (MDRD) Af Amer 93, Est GFR (MDRD) Non-Af 77, BUN/Creatinine Ratio 22.1 H, Glucose 125 H, Calcium 8.8, Troponin I High Sens < 3 L 02/03/23 05:22: WBC 6.7, RBC 4.29, Hgb 13.8, Hct 40.9, MCV 95.3, MCH 32.2 H, MCHC 33.7, RDW Std Deviation 41.9, RDW Coeff of Nila 12.0, Plt Count 272, MPV 9.8, Immature Gran % (Auto) 1.300 H, Neut % (Auto) 47.9, Lymph % (Auto) 39.5, Long % (Auto) 9.2, Eos % (Auto) 1.8, Baso % (Auto) 0.3, Absolute Neuts (auto) 3.2, Absolute Lymphs (auto) 2.65, Nucleated RBC % 0, Sodium 140, Potassium 3.8, Chloride 109 H, Carbon Dioxide 25.0, Anion Gap 6, BUN 15, Creatinine 0.74, Estim Creat Clear Calc 67.14, Est GFR (MDRD) Af Amer 103, Est GFR (MDRD) Non-Af 86, BUN/Creatinine Ratio 20.2 H, Glucose 110 H, Hemoglobin A1c 5.1, Calcium 8.6, Triglycerides 98, Cholesterol 180, LDL Cholesterol 102, VLDL Cholesterol 20, HDL Cholesterol 58 Radiography Diagnostic Testing: Radiology Impression Brain CT 02/02/23 22:04 IMPRESSION: No CT evidence of acute intracranial pathology. ASPECTS: 10. Electronically Signed: Alejandro Glass DO at 23:10 EDT , Head/Neck CTA 02/02/23 22:04 IMPRESSION: 1. No acute arterial pathology in the neck. 2. No large vessel occlusion or critical intracranial arterial stenosis. Electronically Signed: Alejandro Henao RamiorDO torsten at 23:27 EDT , Chest X-Ray 02/02/23 22:32 IMPRESSION: Minimal linear scarring or discoid atelectasis at left base.. No acute infiltration or other significant abnormality Electronically Signed: Efrain Partida MD at 22:50 EDT , Brain MRI 02/03/23 03:59 IMPRESSION: Negative unenhanced MRI of the brain. Electronically Signed: Julio Cesar Bates MD at 14:46 EDT , Echocardiogram 02/03/23 03:59 Interpretation Summary The left ventricular ejection fraction is 65 %. Bubble contrast study is negative for PFO/ASD. Mild (1+) pulmonic valve insufficiency. Ordering Physician: Desmond Avelar Performed By: Cleve Rodriguez RCS D/C Instructions Discharge Diet: Low fat / Low cholesterol Call your doctor if you observe: - (recurrent symptoms. One-sided weakness or numbnes. Difficulty speaking. ) Meaningful Use Info Meaningful Use Diagnoses (Choose all that apply): Ischemic CVA CVA Therapy Assessed for PT,OT and/or ST?: Yes Ischemic Stroke Antithrombotic order at d/c?: Yes Dx of Atrial fib/flutter?: No Anticoagulant at discharge?: No Reason anticoagulant not ordered: Treatment not Indicated Statins at discharge?: Yes Primary Dx Acute Ischemic CVA?: No IV thrombolytic ordered during stay?: No Reason IV thrombolytic not ordered: Procedure not Indicated Discharge Plan Admission Admit Date/Time: 02/03/23 01:53 Primary Reason for Your Visit: TIA Attending Provider: Kirk Sawyer Primary Care Provider: Will Valdez Consulting Providers: Desmond Avelar Instructions Additional Instructions / Restrictions: You had symptoms concerning for a TIA (transient ischemic attack, AKA mini stroke). Your work up here (including an MRI and echocardiogram) was normal. You are to take aspirin and atorvastatin to prevent a future event. You should wear an event monitor (AKA Holter monitor) for next several weeks (it will be sent to you). This is to see if you have a heart rhythm abnormality call atrial fibrillation. Discharge Orders/Prescriptions Prescriptions: New aspirin 81 mg Tablet,Chewable 81 mg PO BREAKFAST Qty: 0 0RF atorvastatin 40 mg tablet 40 mg PO QHS Qty: 30 0RF Continued sumatriptan succinate 50 mg tablet 50 mg PO PRN propranolol 60 mg capsule,extended release 24 hr 60 mg PO QHS Other Ambulatory Orders: 30 Day Event Recorder Preventi (Urgent) Timeframe: 1 Day Facility: [facility] - Location: Cardiovascular Services Ordered By: Dr. Kirk Sawyer Referrals / Follow Up: [facility] [Provider Group] - Within 1 Month Will Valdez MD [Primary Care Provider] - Within 2 Weeks Disposition Disposition (needs filled in before D/C Order can be placed): Home, Self Care
[2023-02-03 15:44] VITALS: BP 132/80; PULSE 61; RESP 18; TEMP 36.7; O2SAT 99
== END 2023-02-03 15:55 | disposition home or self-care (01) ==
LOC: ED 02-03 01:16 → MS2 02-03 03:50
PROVIDERS: Admitting Provider Hospitalist; Emergency Provider Emergency Medicine; PCP Family Medicine
DX: G45.9 Transient cerebral ischemic attack, unspecified (principal); G43.709 Chronic migraine without aura, not intractable, without status migrainosus; F17.210 Nicotine dependence, cigarettes, uncomplicated; R26.0 Ataxic gait; R42 Dizziness and giddiness; R20.2 Paresthesia of skin; R53.1 Weakness; Z79.899 Other long term (current) drug therapy; Z23 Encounter for immunization
CPT/HCPCS: 36415; 70450; 70496; 70498; 70551; 71045; 80048; 80061; 82962; 83036; 84484; 85025; 93005; 93306; 97802; 99221; 99284; Q9967; 90686; A4216; G0378

== ENCOUNTER → 2023-02-25 | Outpatient (CLI) | payer BC, SELFPAY ==
[2023-02-25 18:46] LABS: Absolute Lymphocyte Count 2.08 X10^3/uL (0.83-4.51); Absolute Neutrophil Count 2.8 X10^3/uL (2.0-7.7); Basophil# 0.01 X10^3/uL; Basophil% 0.2 % (0-1); Eosinophils% 1.8 % (0-5); Hematocrit 39.8 % (37-47); Lymphocyte # 2.08 X10^3/ul (0.83-4.51); Lymphocyte % 37.7 % (19-41); Mean Corp Hgb Conc 32.7 g/dL (32-36); Mean Corpuscular Hgb 31.5 pg (27.0-32.0); Mean Corpuscular Volume 96.4 fL (81-99); Mean Platelet Vol. 10.1 fl (6.2-12.0); Monocyte# 0.47 X10^3/uL; Monocyte% 8.5 % (0-10); NRBC Flagged by Analyzer 0 % (0-5); Neutrophil # 2.84 X10^3/uL (2.7-7.7); Neutrophil % 51.6 % (47-70); Platelet Count 274 K/mm3 (150-450); RBC Distribution Width CV 11.6 % (11.6-14.6); RBC Distribution Width SD 41.1 fl (35.1-43.9); Red Blood Count 4.13 M/mm3 (4.2-5.4); White Blood Count 5.5 K/mm3 (4.4-11.0)
[2023-02-25 18:51] LABS: Anion Gap 6 (5-15); BUN 17 mg/dL (7-18); BUN/Creat Ratio 24.1 RATIO (10-20); Calcium,Total 8.7 mg/dL (8.5-10.1); Chloride 112 mmol/L (98-107); Creatinine, Serum 0.71 mg/dL (0.55-1.02); EST Glomerular Filtration Rate 91 mL/min (>60); Est Glom Filt Rate - Afr Amer 110 mL/min (>60); Glucose 90 mg/dL (74-106); Magnesium 2.2 mg/dL (1.6-2.6); Potassium 3.7 mmol/L (3.5-5.1); Sodium Level 143 mmol/L (136-145)
== END | disposition home or self-care (01) ==
LOC: MFPLAB 15:47
PROVIDERS: PCP Family Medicine; Visit Provider Family Medicine
DX: R42 Dizziness and giddiness (principal)
CPT/HCPCS: 36415; 80048; 83735; 85025

== ENCOUNTER → 2023-03-28 | Outpatient (CLI) | payer BC, SELFPAY ==
--- NOTE | 2023-03-28 10:27 | STRESSREP ---
Stress Test Report Exercise myocardial perfusion stress test. 58-year-old lady with a history of chest pain Stress protocol: Resting EKG demonstrates normal sinus rhythm with a rate of 61 bpm resting blood pressure is 132/70 mmHg. The patient exercised according to the regular Avi protocol for a total duration of 7 minutes attaining a maximum heart rate of 150 bpm which was 92% of maximum predicted heart rate; the maximum workload was 10.1 metabolic equivalents. At rest there were no ST or T wave changes noted to suggest ischemia and at peak exercise upsloping ST changes only were noted, approximately 1 mm which did not meet the criteria for ischemia. No clinical angina was noted the test was terminated due to the target heart rate being achieved/fatigue. The peak blood pressure was 162/86 mmHg. Rate-pressure product was 22,500. Myocardial perfusion protocol. 11.2 mCi of technetium 99m sestamibi was injected at rest. The patient exercised according to regular Avi protocol for total duration of 7 minutes and at peak exercise 33.3 mCi of technetium 99m sestamibi was injected stress images were obtained stress and rest images were reconstructed in comparing the short axis vertical long and horizontal long axis. Gated images were also obtained. Perfusion SPECT analysis: Review of the stress images demonstrate normal uptake of tracer noted in all areas of the myocardium. The resting images similarly demonstrate normal uptake of tracer noted in all areas of the myocardium. No areas of reversibility are noted to suggest ischemia no previous infarct was noted. Gated SPECT analysis: The gated ejection fraction is 77%. Conclusion: Normal exercise myocardial perfusion stress test at a moderate workload Preserved ejection fraction.
== END | disposition home or self-care (01) ==
LOC: CVS 06:22
PROVIDERS: PCP Family Medicine; Referring Provider Family Medicine; Visit Provider Family Medicine
DX: R42 Dizziness and giddiness (principal)
CPT/HCPCS: 78452; 93017; A9500; A4216

== ENCOUNTER → 2023-08-01 | Outpatient (CLI) | payer BC, SELFPAY ==
[2023-08-01 10:58] LABS: Thyroid Stim Hormone (TSH) 1.34 uIU/mL (0.358-3.74)
== END | disposition home or self-care (01) ==
LOC: LAB 09:38
PROVIDERS: PCP Family Medicine; Referring Provider Internal Medicine Cardiovascular Disease; Visit Provider Internal Medicine Cardiovascular Disease
DX: R00.2 Palpitations (principal)
CPT/HCPCS: 36415; 84443

== ENCOUNTER → 2024-05-11 | Outpatient (CLI) | payer BC, SELFPAY ==
[2024-05-11 11:23] LABS: Anion Gap 7 (5-15); BUN 18 mg/dL (7-18); BUN/Creat Ratio 24.5 RATIO (10-20); Calcium,Total 8.9 mg/dL (8.5-10.1); Chloride 105 mmol/L (98-107); Cholesterol 188 mg/dL (200); Creatinine, Serum 0.74 mg/dL (0.55-1.02); EST Glomerular Filtration Rate 86 mL/min (>60); Est Glom Filt Rate - Afr Amer 104 mL/min (>60); Glucose 91 mg/dL (74-106); High Density Lipoprotein 61 mg/dL; Potassium 3.8 mmol/L (3.5-5.1); Sodium Level 138 mmol/L (136-145); Triglycerides 81 mg/dL; Very Low Density Lipoprotein 16 mg/dL (5-40)
== END | disposition home or self-care (01) ==
LOC: MFPLAB 08:51
PROVIDERS: PCP Family Medicine; Referring Provider Family Medicine; Visit Provider Family Medicine
DX: Z00.00 Encounter for general adult medical examination without abnormal findings (principal)
CPT/HCPCS: 36415; 80048; 80061; 84443